=== PATIENT | male | born 1975 | race African-American/Black ===

== ENCOUNTER 2020-03-29 01:08 | Emergency (ER) | payer MEDICAID ==
[~2020-03-29] VITALS: Ht 175.3 cm; Wt 86.2 kg
[2020-03-29 04:06] VITALS: BP 129/76
[2020-03-29 06:45] LABS: Urine Bacteria NONE SEEN /hpf (None Seen); Urine Blood Negative /uL (Negative); Urine Mucus FEW (None Seen); Urine Specific Gravity 1.008 (1.001-1.035); Urine WBC <1 /hpf (0 - 3)
[2020-03-29 07:03] LABS: Alcohol, Urine < 3.0 mg/dL (0-10); Amphetamine Screen, Urine NEGATIVE (NEGATIVE); Barbiturate Scree,Urine NEGATIVE (NEGATIVE); Benzodiazephine Screen, Urine NEGATIVE (NEGATIVE); Cannabinoid Screen, Urine NEGATIVE (NEGATIVE); Cocaine Screen, Urine NEGATIVE (NEGATIVE); Opiate Scree,Urine NEGATIVE (NEGATIVE); Phencyclidine Screen, Urine NEGATIVE (NEGATIVE)
== END 2020-03-29 06:10 | disposition home or self-care (01) ==
LOC: EDBD 01:08 → ER 01:14
DX: F31.89 Other bipolar disorder (principal); F28 Other psychotic disorder not due to a substance or known physiological condition; R31.9 Hematuria, unspecified; F20.9 Schizophrenia, unspecified; F17.210 Nicotine dependence, cigarettes, uncomplicated
CPT/HCPCS: 74176; 80307; 81001